=== PATIENT | male | born 1995 | race Caucasian/White ===

== ENCOUNTER 2016-10-16 20:48 | Emergency (ER) | payer OTHER ==
[~2016-10-16] VITALS: Ht 172.7 cm; Wt 72.6 kg
[~2016-10-16 20:48] MED LIST: TYLENOL
[2016-10-16 20:56] VITALS: BP 148/85
--- NOTE | 2016-10-16 21:24 | NUR ---
TO ER BED 8
--- NOTE | 2016-10-16 21:30 | NUR ---
PATIENT PRESENTS TO ED WITH ABD PAIN SINCE 3 PM TODAY, C/O NAUSEA . PT DENIES V/D; SKIN IS PINK/WARM/DRY; AAOX4 WITH EVEN AND STEADY GAIT; LUNGS CLEAR BL; HR EVEN AND REGULAR; PT DENIES ANY FEVER, CP, SOB, OR COUGH AT THIS TIME; PATIENT STATES PAIN OF 7/10 AT THIS TIME; VSS; PATIENT POSITIONED FOR COMFORT; HOB ELEVATED; BEDRAILS UP X2; BED DOWN. ER MD MADE AWARE OF PT STATUS.
[2016-10-16 22:51] VITALS: BP 119/55
== END 2016-10-16 22:53 | disposition home or self-care (01) ==
LOC: MED 20:48
DX: K59.00 Constipation, unspecified (principal); R03.0 Elevated blood-pressure reading, without diagnosis of hypertension

== ENCOUNTER 2017-01-09 19:31 | Emergency (ER) | payer OTHER ==
[~2017-01-09] VITALS: Ht 175.3 cm; Wt 86.9 kg
[2017-01-09 19:37] VITALS: BP 144/78
[2017-01-09 20:12] LABS: APPEARANCE,URINE CLEAR (CLEAR); BILIRUBIN,URINE NEGATIVE (NEGATIVE); BLOOD, URINE TRACE-I (NEGATIVE); COLOR,URINE YELLOW (YELLOW); LEUKOCYTE ESTERASE ,URINE NEGATIVE (NEGATIVE); NITRITE, URINE NEGATIVE (NEGATIVE); PROTEIN,URINE NEGATIVE (NEGATIVE); UGLUCOSE NEGATIVE (NEGATIVE); UROBILINOGEN,URINE 0.2 EU/dL (0.2 - 1)
[2017-01-09 20:20] LABS: BACTERIA,URINE None Seen /HPF (None Seen); RBC,URINE 0-3 /HPF (0-5); SQUAMOUS EPITHELIAL CELL,UR None Seen /LPF (0-3 (FEW)); WBC,URINE 0-3 /HPF (0-5)
--- NOTE | 2017-01-09 22:56 | NUR ---
PT TAKEN TO BED 7
--- NOTE | 2017-01-09 23:00 | NUR ---
21 Y/O M W/C/O BURNING PAIN WITH URINATION, AND WHITE/CLEAR DISCHARGE SINCE TODAY. DENIES ANY PRESENT AT THE MOMENT. NO S/S OF DISTRESS NOTED AT THE MOMENT. DENIES ANY MED HX.
--- NOTE | 2017-01-09 23:30 | NUR ---
PT RESTING IN BED, FAMILY AT BEDSIDE. NO S/S OF DISTRESS NOTED AT THE MOMENT.
--- NOTE | 2017-01-09 23:50 | NUR ---
PT RESTING IN BED, AWATING FOR ER MD, NO S/S OF DSITRESS NOTED AT THE MOMENT.
--- NOTE | 2017-01-10 00:18 | NUR ---
Dr. Griffith evaluating patient at bedside.
[2017-01-10] MEDS ORDERED: AZITHROMYCIN 250 MG TAB PO ONE (00:25)
[2017-01-10] MEDS ORDERED: cefTRIAXone 250 MG in LIDOCAINE 1% ED 0.9 ML IM ONE (00:25)
[2017-01-10 00:52] VITALS: BP 131/83
--- NOTE | 2017-01-10 00:52 | NUR ---
Patient discharged with v/s stable. Written and verbal after care instructions given and explained. Patient alert, oriented and verbalized understanding of instructions. Ambulatory with steady gait. All questions addressed prior to discharge. ID band removed. Patient advised to follow up with PMD OR RETURN TO ER IF CONDITION WORSENS. Rx of MOTRIN given. Patient educated on indication of medication including possible reaction and side effects. Opportunity to ask questions provided and answered.
[2017-01-11 06:53] LABS: CHLAMYDIA TRACHOMATIS AMP DNA Negative (Negative)
== END 2017-01-10 00:52 | disposition home or self-care (01) ==
LOC: MED 19:31
DX: R30.0 Dysuria (principal)
CPT/HCPCS: 36415; 81001; 87491; 96372; 99284; J0696; J2001